=== PATIENT | female | born 1965 | race Two or more races ===

== ENCOUNTER → 2018-03-21 | Outpatient (CLI) | payer OTHER ==
[2014-12-23 12:30] VITALS: BP 148/86
[~2018-03-21] VITALS: Ht 154.9 cm; Wt 76.7 kg
[~2018-03-21] MED LIST: ASPI81TA50 PO; METF500T16 PO; SINCALIDE 1.53 MCG in IV NORMAL SALINE 50ML 30 ML IV ONE
--- NOTE | 2018-03-21 08:21 | RAD ---
ABDOMEN LTD History: Epigastric pain Comparison: None. Findings: Multiple sonographic images of the abdomen are submitted. There is cholelithiasis, some fairly large echogenic shadowing foci in the gallbladder lumen. There is no pericholecystic fluid or significant gallbladder wall thickening. There is diffuse coarsening of the echotexture of the liver. Right lobe of the liver measured 15.5 cm longitudinal. Common bile duct is within normal limits about 0.3 cm. Right kidney measured 10.5 x 5.6 x 3.8 cm, no hydronephrosis. There is segmental visualization of the inferior vena cava. Visualized abdominal aortic caliber is within normal limits. Pancreas is not well-visualized due to bowel gas. Impression: 1. There is cholelithiasis. 2. There is hepatic steatosis. Electronically signed by: Esequiel Rodriguez MD (03/21/2018 8:16 AM) [facility]
--- NOTE | 2018-03-21 12:04 | RAD ---
HEPATOBILIARY SCAN WITH EJECTION FRACTION 03/21/2018 11:59 AM History: Chronic (6 months) intermittent Abd pain with N/V bloating 1.53mCg Kinevac iv for EF 5.5mci 99mTc Choletec Procedure: Serial static images are obtained of the liver and biliary system in the frontal projection following IV administration of 5.5 mCi of Technetium 99m Choletec. After filling of the gallbladder, 1.53 mcg of sincalide were infused over 30 minutes and dynamic imaging continued over this period. The gallbladder ejection fraction was calculated. Findings: There is prompt hepatic clearance of tracer from the blood pool. There is homogeneous distribution throughout the liver. The gallbladder ejection fraction measures 23% (normal gallbladder EF is 35% or greater). IMPRESSION: 1. The cystic duct and common bile duct are patent. Negative for acute cholecystitis. 2. The gallbladder ejection fraction is abnormally low measuring 23 percent. Findings may indicate chronic cholecystitis or gallbladder dyskinesia. Electronically signed by: Luisito Lewis MD (03/21/2018 12:00 PM) [id number]
== END | disposition home or self-care (01) ==
LOC: US 15:21
PROVIDERS: ATTEND Internal Medicine Gastroenterology
DX: K76.0 Fatty (change of) liver, not elsewhere classified (principal); K80.20 Calculus of gallbladder without cholecystitis without obstruction; J44.9 Chronic obstructive pulmonary disease, unspecified; I10 Essential (primary) hypertension; E11.9 Type 2 diabetes mellitus without complications; Z88.8 Allergy status to other drugs, medicaments and biological substances; Z79.01 Long term (current) use of anticoagulants
CPT/HCPCS: 76705; 78227; A9537; J2805